=== PATIENT | female | born 1940 | race Caucasian/White ===

== ENCOUNTER 2018-02-23 19:12 | Emergency (ER) | payer MEDICARE, OTHER ==
[~2018-02-23] VITALS: Ht 162.5 cm; Wt 90.7 kg
--- NOTE | ~2018-02-23 | EKG ---
[place], [place] ELECTROCARDIOGRAM REPORT NAME: FELICE MALDONADO UNIT #: [id number] ROOM: DOCTOR: EPIPHANY DRAFT REPORT BIRTHDATE: [birth year] [facility] Test Date: 2018-02-23 Test Time: 19:44:33 Pat Name: FELICE MALDONADO Department: Room: Gender: F Manager Of Compensation: YAZMIN : 1940 Requested By: MAREN ROSENBERG Order Number: [id number] Reading MD: Measurements Intervals [place] Rate: 103 P: 40 GA: 165 QRS: -21 QRSD: 104 T: 39 QT: 338 QTc: 443 Interpretive Statements Sinus tachycardia Borderline left axis deviation No previous ECG available for comparison CM:EKGRPT:ELECTROCARDIOGRAM REPORT 43 [id number] MAREN DELAROSA DRAFT REPORT MAREN ROSENBERG DO
[2018-02-23] MEDS ORDERED: KEFLEX500 M1 PO (19:20)
[2018-02-23] MEDS ORDERED: VITAMIN B121000 MC1 PO (19:21)
[2018-02-23] MEDS ORDERED: ASPIR LOW81 MG PO (19:22)
[2018-02-23] MEDS ORDERED: CARBIDOPA-LEVO1 EAC6 PO (19:22)
[2018-02-23] MEDS ORDERED: NOVOLOG FL100 UNIT/1 SQ (19:23)
[2018-02-23] MEDS ORDERED: LEVEMIR FL100 UNIT/1 SQ (19:23)
[2018-02-23] MEDS ORDERED: FEXOFENADINE H180 M1 PO (19:24)
[2018-02-23] MEDS ORDERED: NATURE'S BLEND F1 MG PO (19:24)
[2018-02-23] MEDS ORDERED: POTASSIUM CHLO20 ME4 PO (19:25)
[2018-02-23] MEDS ORDERED: PRAVASTATIN SOD80 MG PO (19:25)
[2018-02-23] MEDS ORDERED: MULTIVITAMINS1 EAC5 PO (19:25)
[2018-02-23] MEDS ORDERED: PLAVIX75 M1 PO (19:25)
[2018-02-23] MEDS ORDERED: NEURONTIN100 MG PO (19:26)
[2018-02-23] MEDS ORDERED: ACIDOPHILUS1 EAC4 PO (19:26)
[2018-02-23] MEDS ORDERED: TYLENOL325 M3 PO (19:27)
[2018-02-23] MEDS ORDERED: XANAX1 MG PO (19:27)
[2018-02-23 19:35] LABS: BASO # 0.1 10*3/uL (0.0-0.1); BASO % 0.9 % (0.0-1.0); EOS # 0.2 10*3/uL (0.0-0.4); HEMATOCRIT 39.7 % (37.0-47.0); HEMOGLOBIN 12.3 g/dl (12.0-16.0); LYMPH # 1.7 10*3/uL (1.3-4.4); LYMPH % 25.1 % (27.0-41.0); MEAN CELL VOLUME 89.2 fl (81.0-99.0); MEAN CORPUSCULAR HGB 27.6 pg (27.0-31.0); MEAN PLATELET VOLUME 9.9 fl (9.6-12.3); MONO # 0.5 10*3/uL (0.1-1.0); MONO % 7.1 % (3.0-9.0); NEUT # 4.4 10*3/uL (2.3-7.9); NEUT % 63.6 % (47.0-73.0); PLATELET COUNT AUTOMATED 285 10*3/uL (130-400); RED BLOOD COUNT 4.45 10*6/uL (4.10-5.10); RED CELL DISTRI WIDTH 15.1 % (0-14.5); WHITE BLOOD COUNT 6.9 10*3/uL (4.8-10.8)
[2018-02-23 19:50] LABS: BILIRUBIN NEGATIVE (NEGATIVE); BLOOD NEGATIVE (NEGATIVE); CLARITY CLEAR (CLEAR); COLOR YELLOW (YELLOW); GLUCOSE 2+ (NEGATIVE); KETONE NEGATIVE (NEGATIVE); LEUKO ESTERASE NEGATIVE (NEGATIVE); NITRITE NEGATIVE (NEGATIVE); PH 7.5 (5.0-9.0); SPECIFIC GRAVITY 1.015 (1.005-1.030); UROBILINOGEN 0.2 E.U./dl (0.2-1.0)
[2018-02-23 19:51] LABS: ALBUMIN 2.9 gm/dl (3.1-4.5); ALKALINE PHOSPHATASE 126 U/L (45-117); BUN 12 mg/dl (7-24); CHLORIDE 102 mmol/L (98-107); CREATININE 0.65 mg/dL (0.55-1.02); POTASSIUM 4.2 mmol/L (3.5-5.1); SGOT/AST 14 IU/L (3-35); SGPT/ALT 18 U/L (12-78); SODIUM 146 mmol/L (136-145); TOTAL PROTEIN 7.6 gm/dL (6.4-8.2)
[2018-02-23 19:53] LABS: ACETAMINOPHEN (TYLENOL) < 5.0 ug/ml (10-30)
[2018-02-23 19:58] LABS: URINE AMPHETAMINES < 1000 (1000ng/ml); URINE BARBITURATES < 200 (200ng/ml); URINE BENZODIAZEPINES > 200 (200ng/ml); URINE CANNABINOIDS (THC) < 50 (50ng/ml); URINE COCAINE < 300 (300ng/ml); URINE METHADONE < 300 (300ng/ml); URINE OPIATES < 300 (300ng/ml)
[2018-02-23 19:59] LABS: URINE PHENCYCLIDINE < 25 (25ng/ml)
[2018-02-23 19:59] LABS: THYROID STIM HORMONE (HS) 0.017 uIU/ml (0.358-4.75)
[2018-02-23 20:00] LABS: ETHYL ALCOHOL < 3.0 mg/dl (<3)
[2018-02-23 20:01] LABS: BACTERIA TRACE; EPITHELIAL CELLS 16-20; WBC 0-2 wbc/hpf (0-5)
== END 2018-02-23 21:07 | disposition home or self-care (01) ==
LOC: ED 19:12
PROVIDERS: Emergency Medicine
DX: F32.9 Major depressive disorder, single episode, unspecified (principal); R45.851 Suicidal ideations; Z88.8 Allergy status to other drugs, medicaments and biological substances; Z79.899 Other long term (current) drug therapy; Z79.82 Long term (current) use of aspirin

== ENCOUNTER 2018-02-23 20:49 | Inpatient (IN) | payer MEDICARE, OTHER ==
--- NOTE | ~2018-02-23 | PR ---
[place], [place] PROGRESS NOTE NAME: FELICE MALDONADO UNIT #: [id number] ROOM: 312 DOCTOR: MARIA E RAI MD BIRTHDATE: [birth year] DOS: 02/26/2018 CHIEF COMPLAINT: "Oh, I have agoraphobia; I have had it for over 50 years." SUMMARY OF THE VISIT: The patient was interviewed as she was sitting eating her breakfast. She stopped and engaged readily in conversation. She recounted to me the story of her psychiatric illness and stated that she was first diagnosed with agoraphobia approximately 50 years ago and has been in active treatment for approximately 20. She also stated to me that she felt frustrated by her recent hospitalization at [place] and made comments there that she now realizes were inappropriate and led to her hospitalization. She does not feel that she is depressed, nor does she endorse suicidality. She does endorse ongoing anxiety issues and stated that the ride from [place] to hear was absolutely hell because she has such bad agoraphobia and anxiety. She is willing to work with me to allow me to adjust medicines to attempt to control these symptoms much better. MENTAL STATUS: She is alert and oriented. She does appear depressed, even though she minimizes the depression. She also endorses significant anxiety and looks outwardly distraught and anxious. There is no nikos, hypomania, nor is there any psychosis. She convincingly denies suicidality, homicidality or any self-injurious thoughts. Memory for the most part is intact. PLAN: I will attempt to simplify her drug regimen. I will discontinue her Seroquel as I do not see her as psychotic or manic and even though this is low potency with her history of Parkinson's, I do not want to risk exacerbating her parkinsonian symptoms. I will discontinue Remeron and the hydroxyzine that is straight. Instead, I will increase her Xanax to 1 mg 3 times a day. She had previously been on a higher dose and I started a taper without knowing her true symptoms. I will start her on Tofranil 50 mg at bedtime to combat both the depressive symptomatology as well as the agoraphobia. I have instructed D[employer] to reach out to [facility] so that not only can she have followup with Dr. Germain or the psychiatrist there, but also hopefully see a psychologist on a weekly basis post-discharge. We will continue to engage her in individual and silva milieu activity here, returning to the least restrictive environment when psychiatrically stable. [place], [place] PROGRESS NOTE NAME: FELICE MALDONADO UNIT #: [id number] ROOM: [facility] DOCTOR: MARIA E RAI MD BIRTHDATE: [birth year] MARIA E RAI MD CM:PNTRANS [id number] MARIA E RAI MD 03/09/18 1021 interface
--- NOTE | ~2018-02-23 | DS ---
[place], [place] DISCHARGE SUMMARY NAME: FELICE MALDONADO UNIT #: [id number] ROOM: 312 DOCTOR: MARIA E RAI MD BIRTHDATE: [birth year] DOS: 02/27/2018 CHIEF COMPLAINT: "I really shouldn't have said what I did." HISTORY OF PRESENT ILLNESS: This is a 77-year-old white female admitted to the [facility] from [facility] in [place]. The patient had voiced repeatedly to staff there that she wanted to commit suicide because she was frustrated with her life and her plan was to wheelchair in front of a truck in front of the alf. Most recently, the patient had surgery to correct a chronic diabetic foot ulcer and the wound has not been healing and has been giving her a great deal of problems both from a pain standpoint and ambulation standpoint. The patient has voiced poor sleep and appetite, anergia, anhedonia, hopeless, helpless feelings, crying spells and inability to cope. She is admitted now to rule out organic factors, stabilize on medication, returning to the least restrictive environment when psychiatrically stable. SUMMARY OF HOSPITAL COURSE: The patient was admitted to the unit where initially her Xanax dose was lowered to prevent excessive sedation; however, upon further evaluation, the patient endorsed a 25+ year history of agoraphobia and states that the panic attacks have been persistent throughout her life, worse when she has to go into social situations. Xanax has been one of the only drug that has helped her, although her pharmacologic interventions have been limited due to her not seeking active treatment. During the initial part of her stay Nakia Chicas, nurse practitioner did evaluate her and started her on Seroquel 12.5 mg twice daily. However, as I reevaluated the patient, I did not feel that this was warranted, instead I did resume her dose of Xanax at a dose of 0.5 mg 3 times a day, additionally I enlisted the patient to try Tofranil in lieu of the Remeron that she had been prescribed, stating to her that the Tofranil would more positively impact on the panic attacks as well as the agoraphobia. The patient agreed to try it. The patient consistently through her stay endorsed a willingness and a desire to get better and was very forward thinking. She expressed significant remorse for her statements stating that it was done out of frustration and not true feeling. After tolerating one night worth of Tofranil and noticing no side effects, the patient felt that she was ready to resume her care at [place] and was discharged then back to [place] where she will follow with Dr. Eric Germain, the psychiatrist there of record. MENTAL STATUS AT DISCHARGE: The patient is alert and oriented with some time gaps. Mood does seem to be trending towards euthymia. Affect is more appropriate. Her anxiety seemed to come under control while at the [facility]. There was no nikos or hypomania. There were no psychotic symptoms and memory did exhibit some mild changes, but otherwise was intact. FINAL DIAGNOSES UPON DISCHARGE: Major depression, recurrent, severe and agoraphobia with panic attacks. DISPOSITION: All of her prescriptions have been E-scribed to [facility] at [place] except a week's worth of Xanax which was printed and will be sent with the patient. She will follow with Dr. Eric Germain, the psychiatrist of record and [place], [place] DISCHARGE SUMMARY NAME: FELICE MALDONADO UNIT #: [id number] ROOM: 312 DOCTOR: MARIA E RAI MD BIRTHDATE: [birth year] she will also see the psychologist that services [place] as well. MARIA E RAI MD CM:DISCHARG 4 [id number] MARIA E RAI MD 02/27/18 1139 interface
[~2018-02-23 20:49] MED LIST: ACIDOPHILUS1 EAC4 PO; ASPIR LOW81 MG PO; CARBIDOPA-LEVO1 EAC6 PO; FEXOFENADINE H180 M1 PO; KEFLEX500 M1 PO; LEVEMIR FL100 UNIT/1 SQ; MULTIVITAMINS1 EAC5 PO; NATURE'S BLEND F1 MG PO; NEURONTIN100 MG PO; NOVOLOG FL100 UNIT/1 SQ; PLAVIX75 M1 PO; POTASSIUM CHLO20 ME4 PO; PRAVASTATIN SOD80 MG PO; TYLENOL325 M3 PO; VITAMIN B121000 MC1 PO; XANAX1 MG PO
[2018-02-24 00:53] VITALS: BP 113/75
[2018-02-24 07:15] LABS: THYROID STIM HORMONE (HS) 0.023 uIU/ml (0.358-4.75)
[2018-02-24 07:29] VITALS: BP 104/52
[2018-02-24 08:08] LABS: VITAMIN D, 25-HYDROXY 32.3 ng/mL (30-100)
[2018-02-25 07:22] VITALS: BP 110/80
[2018-02-25 19:17] VITALS: BP 117/61
[2018-02-26 07:35] VITALS: BP 112/48
[2018-02-26 20:16] VITALS: BP 132/54
[2018-02-27 08:06] VITALS: BP 121/70
[2018-02-27] MEDS ORDERED: ALPRAZOLAM0.5 M3 PO (08:50)
[2018-02-27] MEDS ORDERED: RIVASTIGMINE1 EACH T (08:50)
[2018-02-27] MEDS ORDERED: IMIPRAMINE HCL50 MG PO (08:50)
== END 2018-02-27 19:02 | disposition other institution (70) | DRG 885 ==
LOC: 3N 20:49
PROVIDERS: Registered Nurse
DX: F33.2 Major depressive disorder, recurrent severe without psychotic features (principal); R45.851 Suicidal ideations; E87.1 Hypo-osmolality and hyponatremia; E44.0 Moderate protein-calorie malnutrition; E87.0 Hyperosmolality and hypernatremia; F40.01 Agoraphobia with panic disorder; G20 Parkinson's disease; F03.90 Unspecified dementia, unspecified severity, without behavioral disturbance, psychotic disturbance, mood disturbance, and anxiety; L97.529 Non-pressure chronic ulcer of other part of left foot with unspecified severity; E11.621 Type 2 diabetes mellitus with foot ulcer; E78.5 Hyperlipidemia, unspecified; D72.810 Lymphocytopenia; E11.65 Type 2 diabetes mellitus with hyperglycemia; I10 Essential (primary) hypertension; M19.90 Unspecified osteoarthritis, unspecified site; F02.80 Dementia in other diseases classified elsewhere, unspecified severity, without behavioral disturbance, psychotic disturbance, mood disturbance, and anxiety; E11.42 Type 2 diabetes mellitus with diabetic polyneuropathy; Z79.4 Long term (current) use of insulin; Z88.8 Allergy status to other drugs, medicaments and biological substances; Z91.018 Allergy to other foods; Z79.82 Long term (current) use of aspirin; Z79.1 Long term (current) use of non-steroidal anti-inflammatories (NSAID); Z79.899 Other long term (current) drug therapy; Z90.710 Acquired absence of both cervix and uterus; Z87.891 Personal history of nicotine dependence